=== PATIENT | male | born 1950 | race Caucasian/White ===

== ENCOUNTER 2024-05-23 22:59 | Inpatient (IN) | payer MEDICARE, BC ==
[~2024-05-23] VITALS: Ht 177.8 cm; Wt 76.2 kg
[2024-05-23] MEDS ORDERED: KETOROLAC TROMETHAMINE 15 MG INJ ONE (23:31)
[2024-05-23] MEDS ORDERED: ONDANSETRON 4 MG/2 ML VIAL ONE (23:31)
[2024-05-23] MEDS ORDERED: HYDROMORPHONE 1 MG/1 ML DISP.SYRIN ONE (23:31)
[2024-05-23] MEDS: ONDANSETRON 4 MG/2 ML VIAL IV ONE (23:38)
[2024-05-23] MEDS: HYDROMORPHONE 1 MG/1 ML DISP.SYRIN IV ONE (23:38)
[2024-05-23] MEDS: KETOROLAC TROMETHAMINE 15 MG INJ IVP ONE (23:39)
[2024-05-23 23:43] LABS: CALCIUM 9.3 mg/dL (8.5-10.1); CARBON DIOXIDE 26 mmol/L (21-32); CHLORIDE 102 mmol/L (98-107); CREATININE 1.1 mg/dL (0.6-1.3); GLUCOSE 146 mg/dL (74-106); SODIUM SERUM 138 mmol/L (136-145); UREA NITROGEN, BLOOD 25 mg/dL (7-18)
[2024-05-23 23:54] LABS: ALANINE AMINOTRANSFERASE 17 U/L (16-63); ALBUMIN 3.9 g/dL (3.4-5.0); ALKALINE PHOSPHATASE 99 U/L (50-136); ASPARTATE AMINOTRANSFERASE 17 U/L (15-37); BILIRUBIN,DIRECT 0.2 mg/dL (0.0-0.2); BILIRUBIN,TOTAL 0.6 mg/dL (0.2-1.0); LIPASE 27 U/L (16-77); TOTAL PROTEIN, SERUM 6.7 g/dL (6.4-8.2)
[2024-05-23 23:59] LABS: BASOPHILS % (AUTO) 0.3 % (0.0-2.0); EOSINOPHILS # (AUTO) 0.1 K/uL (0.0-0.7); EOSINOPHILS % (AUTO) 0.6 % (0.0-7.0); HEMATOCRIT 40.8 % (36.7-47.1); LYMPHOCYTES # (AUTO) 1.1 K/uL (0.8-4.8); LYMPHOCYTES % (AUTO) 8.6 % (20.5-51.5); MEAN CORPUSCULAR HEMOGLOBIN 31.4 uug (23.8-33.4); MEAN CORPUSCULAR HGB CONC 34 g/dL (32.5-36.3); MEAN CORPUSCULAR VOLUME 91.4 fL (73.0-96.2); MONOCYTES # (AUTO) 0.7 K/uL (0.1-1.30); MONOCYTES % (AUTO) 5.7 % (0.0-11.0); NEUTROPHILS # (AUTO) 10.4 K/uL (1.8-8.9); NEUTROPHILS % (AUTO) 84.8 % (38.5-71.5); PLATELET COUNT (AUTO) 209 K/uL (152-348); RED BLOOD CELL COUNT(AUTO) 4.47 MIL/uL (4.06-5.63); WHITE BLOOD COUNT (AUTO) 12.2 K/uL (3.6-10.2)
[2024-05-24] MEDS ORDERED: HYDROMORPHONE 1 MG/1 ML DISP.SYRIN ONE ×2 (01:29→04:29)
[2024-05-24 01:30] VITALS: O2SAT 99
[2024-05-24] MEDS: HYDROMORPHONE 1 MG/1 ML DISP.SYRIN IV ONE (01:31)
[2024-05-24] MEDS ORDERED: TAMSULOSIN PO (02:51)
[2024-05-24] MEDS ORDERED: ROSU5TAB PO (02:51)
[2024-05-24] MEDS ORDERED: ONDANSETRON 4 MG/2 ML VIAL ONE (04:29)
[2024-05-24] MEDS: ONDANSETRON 4 MG/2 ML VIAL IV PRN ×2 (04:30→14:24)
[2024-05-24] MEDS: HYDROMORPHONE 1 MG/1 ML DISP.SYRIN IV PRN ×2 (04:30→10:42)
[2024-05-24] MEDS ORDERED: REMEDY ESSENTIAL ZINC PASTE 113 GM TP PRN (04:45)
[2024-05-24 04:54] LABS: *BILIRUBIN,URIN NEGATIVE (NEGATIVE); *BLOOD, URINE 3+ (NEGATIVE); *CLARITY,URINE CLEAR (CLEAR); *COLOR,URINE YELLOW (YELLOW); *KETONES,URINE TRACE (NEGATIVE); *PROTEIN,URINE 1+ (NEGATIVE); *UROBILINOGEN,URINE 0.2 E.U./dl (NORMAL); LEUKOCYTE ESTERASE ,URINE NEGATIVE (NEGATIVE); NITRITE, URINE NEGATIVE (NEGATIVE); PH,URINE 5.5 (5.0-8.0); UGLUCOSE NEGATIVE (NEGATIVE)
[2024-05-24 05:12] LABS: BACTERIA,URINE FEW /HPF (NONE SEEN); MUCUS,URINE FEW /LPF (0-FEW); SQUAMOUS EPITHELIAL CELL,UR FEW /HPF (NONE SEEN); WBC,URINE 0-3 /HPF (0-3)
[2024-05-24 05:30] VITALS: BP 159/92; TEMP 98.2; O2SAT 98
[2024-05-24 07:07] LABS: BASOPHILS % (AUTO) 0.2 % (0.0-2.0); EOSINOPHILS % (AUTO) 0.4 % (0.0-7.0); HEMATOCRIT 39.7 % (36.7-47.1); HEMOGLOBIN 13.7 g/dL (12.5-16.3); LYMPHOCYTES # (AUTO) 0.7 K/uL (0.8-4.8); LYMPHOCYTES % (AUTO) 6.3 % (20.5-51.5); MEAN CORPUSCULAR HEMOGLOBIN 31.5 uug (23.8-33.4); MEAN CORPUSCULAR HGB CONC 34 g/dL (32.5-36.3); MEAN CORPUSCULAR VOLUME 91.6 fL (73.0-96.2); MONOCYTES # (AUTO) 0.9 K/uL (0.1-1.30); MONOCYTES % (AUTO) 7.6 % (0.0-11.0); NEUTROPHILS # (AUTO) 9.6 K/uL (1.8-8.9); NEUTROPHILS % (AUTO) 85.5 % (38.5-71.5); PLATELET COUNT (AUTO) 187 K/uL (152-348); RED BLOOD CELL COUNT(AUTO) 4.33 MIL/uL (4.06-5.63); RED CELL DISTRIBUTION WIDTH 13.1 % (12.1-16.2); WHITE BLOOD COUNT (AUTO) 11.3 K/uL (3.6-10.2)
[2024-05-24 07:17] LABS: DIFFERENTIAL COMMENT 1
[2024-05-24 07:35] LABS: ALANINE AMINOTRANSFERASE 14 U/L (16-63); ALBUMIN 3.7 g/dL (3.4-5.0); ALKALINE PHOSPHATASE 94 U/L (50-136); ASPARTATE AMINOTRANSFERASE 12 U/L (15-37); BILIRUBIN,DIRECT 0.2 mg/dL (0.0-0.2); CARBON DIOXIDE 27 mmol/L (21-32); CHLORIDE 103 mmol/L (98-107); CREATININE 1.2 mg/dL (0.6-1.3); GLUCOSE 154 mg/dL (74-106); PHOSPHOROUS 4.6 mg/dL (2.5-4.9); POTASSIUM 4.5 mmol/L (3.5-5.1); SODIUM SERUM 138 mmol/L (136-145); TOTAL PROTEIN, SERUM 6.5 g/dL (6.4-8.2); UREA NITROGEN, BLOOD 26 mg/dL (7-18)
[2024-05-24] MEDS: IV NS 1000 ML 1,000 ML IV PRN (07:54)
[2024-05-24] MEDS ORDERED: TAMS-3 PO (09:36)
[2024-05-24] MEDS: CEFTRIAXONE 1 G in IV DEXTROSE 5% 50 ML IV SCH (09:36)
[2024-05-24] MEDS ORDERED: FINA5TAB3 PO (11:15)
[2024-05-24] MEDS ORDERED: ESCI5TAB PO (11:21)
[2024-05-24 11:59] VITALS: BP 165/78; TEMP 97.8; O2SAT 99
[2024-05-24] MEDS ORDERED: DIAZEPAM 10 MG/2 ML DISP.SYRIN IV PRN (13:30)
[2024-05-24] MEDS: KETOROLAC TROMETHAMINE 30 MG INJ IVP SCH (14:28)
[2024-05-24 16:24] VITALS: BP 116/67; TEMP 98.4; O2SAT 96
[2024-05-24 20:00] VITALS: BP 127/71; TEMP 98.2; O2SAT 95
[2024-05-24 20:33] VITALS: O2SAT 98
[2024-05-24] MEDS: MAGNESIUM HYDROXIDE 30 ML LIQUID UDC PO PRN (20:55)
[2024-05-25 06:57] VITALS: BP 138/60; TEMP 98.1; O2SAT 94
[2024-05-25] MEDS ORDERED: FENTANYL CITRATE 100 MCG/2 ML AMPUL ONE (08:05)
[2024-05-25 12:00] VITALS: BP 131/69; TEMP 97.5; O2SAT 97
[2024-05-25 16:00] VITALS: BP 142/80; TEMP 98.9; O2SAT 97
[2024-05-25 20:00] VITALS: BP 130/78; TEMP 97.4; O2SAT 95
[2024-05-25 20:36] VITALS: O2SAT 97
[2024-05-26 09:46] VITALS: BP 157/79; TEMP 98.5; O2SAT 99
[2024-05-26 11:35] VITALS: BP 146/80; TEMP 97.9; O2SAT 98
== END 2024-05-26 13:45 | disposition home or self-care (01) | DRG 661 ==
LOC: ER 23:04 → MEDSURG3 05-24 04:11
PROVIDERS: ADMIT Nurse Practitioner Family; ATTEND Internal Medicine
PROC: 0T778DZ Dilation of Left Ureter with Intraluminal Device, Via Natural or Artificial Opening Endoscopic (ICD-10-PCS; principal; 2024-05-25)
DX: N13.2 Hydronephrosis with renal and ureteral calculous obstruction (principal); N40.0 Benign prostatic hyperplasia without lower urinary tract symptoms; R79.89 Other specified abnormal findings of blood chemistry; Z79.899 Other long term (current) drug therapy; Z87.442 Personal history of urinary calculi; E78.5 Hyperlipidemia, unspecified
CPT/HCPCS: 36415; 74018; 83690; 83735; 84100; 84443; 85025; 85730; 93005; A4606; A4663; C1713; C1758; G0378; J0696; J1170; J1885; J2405; J3010; J7040